=== PATIENT | female | born 1940 | race Caucasian/White ===

== ENCOUNTER 2018-03-04 09:41 | Emergency (ER) | payer MEDICARE, OTHER ==
[2018-03-04 10:19] VITALS: BP 137/71
--- NOTE | 2018-03-04 10:53 | UC ---
Respiratory Complaint HPI - HPI Summary HPI Summary: 77 y/o female presents to the urgent care c/o productive cough, sore throat, nasal congestion, body aches, KING for the past week. Pt also states mild SOB and wheezing since last night. She has been taking Nyquill PO to alleviate symptoms. Pt states phlegm is yellowish at times. Pain is 4/10. Pt denies fever , dizziness, chest pain, abdominal pain, N/V/D. - History of Current Complaint Chief Complaint: UCRespiratory Stated Complaint: COUGH,CONGESTION Time Seen by Provider: 03/04/18 10:35 Hx Obtained From: Patient ?: No Onset/Duration: Gradual Onset, Lasting Days - 1 day, Still Present, Worse Since - w/ wheezing Timing: Intermittent Episodes Severity Initially: Mild Severity Currently: Moderate Pain Intensity: 4 - body aches Pain Scale Used: 0-10 Numeric Character: Cough: Productive, Sputum Description: - yellowish Aggravating Factors: Recumbent Position Alleviating Factors: OTC Meds - Nyquill PO Associated Signs And Symptoms: Positive: Chills, Wheezing, URI, Nasal Congestion , Sinus Discomfort. Negative: Dyspnea, Fever - Risk Factors Pulmonary Embolism Risk Factors: Negative Cardiac Risk Factors: Negative Pseudomonas Risk Factors: Negative Tuberculosis Risk Factors: Negative - Allergies/Home Medications Allergies/Adverse Reactions: Allergies Allergy/AdvReac Type Severity Reaction Status Date / Time No Known Allergies Allergy Verified 03/04/18 10:08 Home Medications: Home Medications Aspirin TAB* [Aspirin 325 MG TAB*] 325 mg PO DAILY 03/04/18 [History Confirmed 03/04/18] Cholecalciferol (Vitamin D3) [Vitamin D3] 1,000 unit PO DAILY 03/04/18 [History Confirmed 03/04/18] Hydrochlorothiazide TAB* [Hydrodiuril TAB*] 25 mg PO DAILY 03/04/18 [History Confirmed 03/04/18] Levothyroxine TAB* [Synthroid 25 MCG TAB*] 25 mcg PO DAILY 03/04/18 [History Confirmed 03/04/18] Metoprolol Succinate 50 mg PO DAILY 03/04/18 [History Confirmed 03/04/18] Tofacitinib Citrate [Xeljanz] 5 mg PO DAILY 03/04/18 [History Confirmed 03/04/18 ] Valsartan/Hydrochlorothiazide [Valsartan-Hctz 320-12.5 mg Tab] 1 tab PO DAILY [History Confirmed 03/04/18] amLODIPine TAB* [Norvasc 5 mg TAB*] 5 mg PO DAILY 03/04/18 [History Confirmed ] predniSONE TAB* [Deltasone TAB*] 5 mg PO DAILY 03/04/18 [History Confirmed 03/04] PMH/Surg Hx/FS Hx/Imm Hx Previously Healthy: Yes Endocrine History: Hypothyroidism Other Endocrine History: RA, vitaming D defficiency, Cardiovascular History: Hypertension - Surgical History Surgical History: Yes Surgery Procedure, Year, and Place: APPENDECTOMY - Family History Known Family History: Positive: Hypertension - Social History Occupation: Retired Lives: With Family Alcohol Use: Occasionally Substance Use Type: None Smoking Status (MU): Former Smoker Review of Systems All Other Systems Reviewed And Are Negative: Yes Constitutional: Positive: Chills, Other - body aches Skin: Positive: Negative Eyes: Positive: Negative ENT: Positive: Sore Throat, Nasal Discharge - yellowish, Sinus Congestion, Sinus Pain/Tenderness Respiratory: Positive: Cough - productive w/ yellowish phlegm, Other - wheezing Cardiovascular: Positive: Negative Gastrointestinal: Positive: Negative Genitourinary: Positive: Negative Motor: Positive: Negative Neurovascular: Positive: Negative Musculoskeletal: Positive: Negative Neurological: Positive: Negative Psychological: Positive: Negative Is Patient Immunocompromised?: No Physical Exam - Summary Physical Exam Summary: Vital Signs Reviewed: Yes General: well developed, well nourished female sitting in the examining table w/ o any apparent distress Eyes: Positive: Conjunctiva Clear - PERRLA, EOMI, fundi grossly normal ENT: Positive: Normal ENT inspection, Hearing grossly normal, Pharynx normal, Nasal congestion - edematous and erythematous nasal mucosa, Nasal drainage - yellowish drainage, TMs normal. Negative: Tonsillar swelling, Tonsillar exudate Neck: Positive: Supple, Nontender, No Lymphadenopathy Respiratory: no orthopnea or dyspnea. Able to speak in full sentences, no retractions or accessory muscle use, no tripod position, stridor, or head bobbing. Positive breath sounds bilaterally. diffuse scattered wheezing and rhonchi on b/L lungs, no crackles or rales. Cardiovascular: Positive: RRR, No Murmur, Pulses Normal, Brisk Capillary Refill Abdomen Description: Positive: Nontender, No Organomegaly, Soft. Negative: CVA Tenderness (R), CVA Tenderness (L) Bowel Sounds: Positive: Present Musculoskeletal Exam: Normal Musculoskeletal: Positive: Strength Intact, ROM Intact, No Edema Neurological Exam: Normal Psychological Exam: Normal Skin Exam: Normal Triage Information Reviewed: Yes Vital Signs: Initial Vital Signs Temp 97.8 F 03/04/18 10:14 Pulse 69 03/04/18 10:14 Resp 17 03/04/18 10:14 BP 137/71 03/04/18 10:14 Pulse Ox 99 03/04/18 10:14 Diagnostic Evaluation - Laboratory O2 Sat by Pulse Oximetry: 99 Respiratory Course/Dx - Course Course Of Treatment: 77 y/o female presents to the urgent care c/o productive cough, sore throat, nasal congestion, body aches, KING for the past week. Pt also states mild SOB and wheezing since last night. She has been taking Nyquill PO to alleviate symptoms. Pt states phlegm is yellowish at times. Pain is 4/10. Pt denies fever, dizziness, chest pain, abdominal pain, N/V/D. Hx obtained. Pt w/ B /L scattered wheezing and rhonhi on examination. O2Sat:99%.Chest X-ray ordered, Impression: hyperinflation of lungs and no active cardiopulmonary disease observed. However some calcified granulomas observed as per radiologist. Pt explained the incidental findings. I disscussed Pt's findings w/ DR Noriega and he recommended to call Pt's PCP Dr Last from [facility] [place]. Nurse Enriqueta states DR Last was very busy at the moment but she will make sure to let him know about the Chest X-ray findings. [facility] also stated she will call Pt and will make an appt to see Dr Last in 1-2 days. Pt given Prednisone 60 mg PO ordered and Duoneb treatment ordered. Pt tolerated well medications and her lungs improved. Pt states feeling better. Pt will be tX for Acute Bronchitis, Rx Doxycycline PO , Prednisone taper dose and Inhaler. Pt educated on the calcified granulomas and the importance to f/u w/ her PCP Dr Last and that his office will contact her this afternoon for a f/u appt. Pt also given a referral w/ [facility] Dr Liang for further managment. Pt understood and agreed with D/C instructions and left the clinic hemodynamically stable. - Differential Dx/Diagnosis Differential Diagnosis/HQI/PQRI: Asthma, Bronchitis, Influenza, Sinusitis, Other - pneumonia Provider Diagnosis: Pulmonary granuloma, Bronchitis, Wheezing Discharge - Sign-Out/Discharge Documenting (check all that apply): Patient Departure - D/C home All imaging exams completed and their final reports reviewed: Yes - Discharge Plan Condition: Stable Disposition: HOME Prescriptions: Albuterol HFA INHALER* [Ventolin HFA Inhaler*] 1 - 2 puff INH Q6H PRN #1 mdi PRN Reason: Wheezing DOXYcycline CAP(*) [DOXYcycline 100MG CAP(*)] 100 mg PO BID #20 cap predniSONE TAB* [Deltasone TAB*] 5 mg PO SEE INSTRUCTIONS #40 tab Patient Education Materials: Acute Bronchitis (ED), Pulmonary Nodules (ED), Wheezing (ED) Referrals: HEENA Salazar [Medical Doctor] - 1 Day Salena Liang MD [Medical Doctor] - 2 Days Additional Instructions: 1-Please take full course of antibiotic to avoid resistance. Taper down Prednisone PO as directed to return to 5mg 2- use the albuterol inhaler to alleviate cough. Increase fluid intake, rest and eat well. 3- If symptoms do not improve or worsen or your develop SOB with fever and severe wheezing please go immediately to the ER further evaluation and treatment. 4- F/u with your PCP in 1-2 days for further management on the incidental findings on your calcified granulomas in the chest X-ray. I contact your PCP DR Last Office and notified them of this finding. They will contact you for a f /u appt. If you don't get a sooner appt please f/u w/ [facility] Dr Liang for further management in these granulomas - Billing Disposition and Condition Condition: STABLE Disposition: Home
[2018-03-04] MEDS ORDERED: Albuterol/Ipratropium NEB.SOL* Albuterol 2.5 MG/Ipratropium 0.5 MG 3 ML INH ONE (10:54)
[2018-03-04] MEDS ORDERED: predniSONE TAB* 20 MG PO ONE (10:55)
[2018-03-04 11:13] LABS: Influenza A Molecular NEGATIVE (Negative); Influenza B Molecular NEGATIVE (Negative)
== END 2018-03-04 12:21 | disposition home or self-care (01) ==
LOC: UCCORT 09:41
DX: J40 Bronchitis, not specified as acute or chronic (principal); J84.10 Pulmonary fibrosis, unspecified; R06.2 Wheezing; E03.9 Hypothyroidism, unspecified; I10 Essential (primary) hypertension; E55.9 Vitamin D deficiency, unspecified; M06.9 Rheumatoid arthritis, unspecified; Z87.891 Personal history of nicotine dependence
CPT/HCPCS: 71046; 99202; A9270-GY; G0463; J7512